=== PATIENT | male | born 1990 | race Caucasian/White ===

== ENCOUNTER 2018-02-01 14:14 | Day surgery (SDC) | payer MEDICAID ==
[2018-02-01] MEDS ORDERED: Sodium Chloride 0.9% 10 ML Syringe FLUSH PRN ×2 (14:33→14:41)
[2018-02-01] MEDS ORDERED: Sodium Chloride 0.9% 1,000 ML IV STA (14:33)
[2018-02-01] MEDS ORDERED: Ondansetron 4 MG/2 ML SDV IVPUSH ONE (14:35)
[2018-02-01] MEDS ORDERED: HYDROmorphone 0.5 MG/0.5 ML SYRINGE IVPUSH ONE ×2 (14:35→16:21)
[2018-02-01] MEDS ORDERED: Diatrizoate Meglumine/Diatrizoate Sodium 37% 120 ML Bottle PO ONE (14:41)
[2018-02-01] MEDS ORDERED: Iopamidol 612 MG/ML 150 ML Bottle IVPUSH ONE (14:41)
[2018-02-01] MEDS ORDERED: Famotidine 20 MG/2 ML SDV IVPUSH ONE (14:48)
--- NOTE | 2018-02-01 14:51 | EDM.PDOC ---
ED HPI GENERAL MEDICAL PROBLEM - General Chief Complaint: Abdominal Pain Stated Complaint: ABDOMINAL PAIN Time Seen by Provider: 02/01/18 14:26 Source of Information: Reports: Patient History Limitations: Reports: No Limitations - History of Present Illness INITIAL COMMENTS - FREE TEXT/NARRATIVE: The patient presents with abdominal pain, nausea and vomiting. This started this morning. He has no diarrhea or dysuria. He still has his gallbladder and appendix. He has no fever, chills, cough, chest pain, or shortness of breath. He cannot keep anything down. Onset: Gradual Duration: Hour(s): Location: Reports: Abdomen Quality: Reports: Sharp Severity: Moderate Improves with: Reports: None Worsens with: Reports: None Associated Symptoms: Reports: Nausea/Vomiting. Denies: Chest Pain, Fever/Chills , Headaches, Shortness of Breath Treatments TAFFY PULLER: Reports: Other (see below) Other Treatments TAFFY PULLER: none Upper Abdomen Pain Score (Numeric/FACES): 9 - Related Data Allergies Allergy/AdvReac Type Severity Reaction Status Date / Time No Known Allergies Allergy Verified 02/01/18 14:25 Home Meds: Home Meds . [No Known Home Meds] 02/01/18 [History] Past Medical History - Past Health History Medical/Surgical History: Denies Medical/Surgical History Social & Family History - Tobacco Use Smoking Status *Q: Current Every Day Smoker Years of Tobacco use: 12 Packs/Tins Daily: 0.5 - Caffeine Use Caffeine Use: Reports: Soda - Recreational Drug Use Recreational Drug Use: No ED ROS GENERAL - Review of Systems Review Of Systems: See Below Constitutional: Reports: No Symptoms HEENT: Reports: No Symptoms Respiratory: Reports: No Symptoms Cardiovascular: Reports: No Symptoms Endocrine: Reports: No Symptoms GI/Abdominal: Reports: Abdominal Pain, Nausea, Vomiting. Denies: Diarrhea : Reports: No Symptoms Musculoskeletal: Reports: No Symptoms Skin: Reports: No Symptoms ED EXAM, GI/ABD - Physical Exam Exam: See Below Exam Limited By: No Limitations General Appearance: Alert, No Apparent Distress Ears: Normal External Exam Nose: Normal Inspection Head: Atraumatic, Normocephalic Neck: Normal Inspection Respiratory/Chest: No Respiratory Distress, Lungs Clear, Normal Breath Sounds Cardiovascular: Regular Rate, Rhythm, No Edema, No Murmur GI/Abdominal Exam: Soft, No Organomegaly, No Mass, Tender (Moderate tenderness to the upper abdomen with some mild pain to the RLQ) Back Exam: Normal Inspection Extremities: Normal Inspection Course - Vital Signs Last Recorded V/S: Last Vital Signs Temp 97.6 F 02/01/18 14:27 Pulse 73 02/01/18 14:27 Resp 20 02/01/18 14:27 BP 133/93 H 02/01/18 14:27 Pulse Ox 100 02/01/18 14:27 - Orders/Labs/Meds Orders: Active Orders 24 hr Category Date Time Status Peripheral IV Care [RC] . DIRECTED Care 02/01/18 14:34 Active Abdomen Pelvis w Cont [CT] Stat Exams 02/01/18 14:33 Taken UA W/MICROSCOPIC [URIN] Stat Lab 02/01/18 16:34 Ordered Sodium Chloride 0.9% [Saline Flush] Med 02/01/18 14:33 Active 10 ml FLUSH ASDIRECTED PRN Sodium Chloride 0.9% [Saline Flush] Med 02/01/18 14:41 Active 10 ml FLUSH ONETIME PRN cefOXitin [Mefoxin in Dextrose,Iso-Osm 2 GM/50 ML] 2 gm Med 02/01/18 17:13 Ordered Premix Bag 1 bag IV ONETIME Peripheral IV Insertion Adult [OM.PC] Stat Oth 02/01/18 14:33 Ordered Medication Orders Sodium Chloride (Saline Flush) 10 ml FLUSH ASDIRECTED PRN PRN Reason: Keep Vein Open Last Admin: 02/01/18 15:08 Dose: 10 ml Sodium Chloride (Saline Flush) 10 ml FLUSH ONETIME PRN PRN Reason: IV FLUSH Last Admin: 02/01/18 16:01 Dose: 10 ml Labs: Laboratory Tests 02/01/18 02/01/18 02/01/18 Range/Units 14:57 14:57 16:34 WBC 14.36 H (4.23-9.07) K/mm3 RBC 5.03 (4.63-6.08) M/mm3 Hgb 15.3 (13.7-17.5) gm/L Hct 45.3 (40.1-51.0) % MCV 90.1 (79.0-92.2) fl MCH 30.4 (25.7-32.2) pg MCHC 33.8 (32.2-35.5) g/dl RDW Std Deviation 42.5 (35.1-43.9) fL Plt Count 268 (163-337) K/mm3 MPV 9.7 (9.4-12.3) fl Neut % (Auto) 87.8 H (34.0-67.9) % Lymph % (Auto) 7.4 L (21.8-53.1) % [place] % (Auto) 4.3 L (5.3-12.2) % Eos % (Auto) 0.1 L (0.8-7.0) Baso % (Auto) 0.1 (0.1-1.2) % Neut # (Auto) 12.61 H (1.78-5.38) K/mm3 Lymph # (Auto) 1.06 L (1.32-3.57) K/mm3 [place] # (Auto) 0.62 (0.30-0.82) K/mm3 Eos # (Auto) 0.02 L (0.04-0.54) K/mm3 Baso # (Auto) 0.01 (0.01-0.08) K/mm3 Manual Slide Review Normal smear Sodium 140 (136-145) mEq/L Potassium 3.9 (3.5-5.1) mEq/L Chloride 103 (98-107) mEq/L Carbon Dioxide 29 (21-32) mEq/L Anion Gap 11.9 (5-15) BUN 14 (7-18) mg/dL Creatinine 0.8 (0.7-1.3) mg/dL Est Cr Clr Drug Dosing 127.48 mL/min Estimated GFR (MDRD) > 60 (>60) mL/min BUN/Creatinine Ratio 17.5 (14-18) Glucose 125 H (74-106) mg/dL Calcium 9.6 (8.5-10.1) mg/dL Total Bilirubin 0.3 (0.2-1.0) mg/dL AST 15 (15-37) U/L ALT 25 (16-63) U/L Alkaline Phosphatase 84 (46-116) U/L Total Protein 8.6 H (6.4-8.2) g/dl Albumin 4.7 (3.4-5.0) g/dl Globulin 3.9 gm/dL Albumin/Globulin Ratio 1.2 (1-2) Lipase 95 (73-393) U/L Urine Color Yellow (Yellow) Urine Appearance Clear (Clear) Urine pH 7.5 (5.0-8.0) Ur Specific [place] 1.020 (1.005-1.030) Urine Protein Negative (Negative) Urine Glucose (UA) Negative (Negative) Urine Ketones 1+ H (Negative) Urine Occult Blood Negative (Negative) Urine Nitrite Negative (Negative) Urine Bilirubin Negative (Negative) Urine Urobilinogen 0.2 (0.2-1.0) Ur Leukocyte Esterase Negative (Negative) Urine RBC 0-5 (0-5) /hpf Urine WBC Not seen (0-5) /hpf Ur Epithelial Cells 0-5 (0-5) /hpf Urine Bacteria Not seen (FEW) /hpf Urine Mucus Not seen (FEW) /hpf Meds: Medications Generic Name Dose Route Start Last Admin Trade Name Freq PRN Reason Stop Dose Admin Sodium Chloride 10 ml 02/01/18 14:33 02/01/18 15:08 Saline Flush FLUSH 10 ml ASDIRECTED PRN Administration Keep Vein Open Sodium Chloride 10 ml 02/01/18 14:41 02/01/18 16:01 Saline Flush FLUSH 10 ml ONETIME PRN Administration IV FLUSH Discontinued Medications Generic Name Dose Route Start Last Admin Trade Name Freq PRN Reason Stop Dose Admin Diatrizoate Meglum/Diatrizoate Sod 120 ml 02/01/18 14:41 02/01/18 16:00 Gastrografin 37% PO 02/01/18 14:42 90 ml ONETIME ONE Administration Famotidine 20 mg 02/01/18 14:48 02/01/18 15:07 Pepcid IVPUSH 02/01/18 14:49 20 mg ONETIME ONE Administration Hydromorphone HCl 0.5 mg 02/01/18 14:35 02/01/18 15:07 Dilaudid IVPUSH 02/01/18 14:36 0.5 mg ONETIME ONE Administration Hydromorphone HCl 0.5 mg 02/01/18 16:21 02/01/18 16:27 Dilaudid IVPUSH 02/01/18 16:22 0.5 mg ONETIME ONE Administration Sodium Chloride 1,000 mls @ 1,000 mls/hr 02/01/18 14:33 02/01/18 15:06 Normal Saline IV 02/01/18 15:32 1,000 mls/hr .BOLUS STA Administration Iopamidol 100 ml 02/01/18 16:01 02/01/18 16:02 Isovue-300 (61%) IVPUSH 02/01/18 16:02 100 ml ONETIME ONE Administration Metoclopramide HCl 10 mg 02/01/18 16:35 02/01/18 16:39 Reglan IVPUSH 02/01/18 16:36 10 mg ONETIME ONE Administration Ondansetron HCl 4 mg 02/01/18 14:35 02/01/18 15:07 Zofran IVPUSH 02/01/18 14:36 4 mg ONETIME ONE Administration - Re-Assessments/Exams Free Text/Narrative Re-Assessment/Exam: 02/01/18 14:51 I ordered an IV NS 1L bolus, dilaudid 0.5mg IV, zofran 4mg IV, labs, UA and a CT of his abdomen and pelvis. 02/01/18 17:17 His WBC was elevated at 14.36. His glucose is elevated at 125. His lipase is negative. His UA shows no UTI. [facility] radiologist called and the patient has acute appendicitis. I called Dr Kumar and he will come see the patient and take him to the OR. I have ordered cefoxitin 2grams IV. Departure - Departure Time of Disposition: 17:20 Disposition: DC/Tfer to [facility] Condition: Good Clinical Impression: Appendicitis Qualifiers: Appendicitis type: acute appendicitis Acute appendicitis type: with localized peritonitis Qualified Code(s): K35.3 - Acute appendicitis with localized peritonitis - Discharge Information Referrals: PCP,None [Primary Care Provider] - Forms: ED Department Discharge - My Orders Last 24 Hours: My Active Orders 02/01/18 14:33 Abdomen Pelvis w Cont [CT] Stat Sodium Chloride 0.9% [Saline Flush] 10 ml FLUSH ASDIRECTED PRN Peripheral IV Insertion Adult [OM.PC] Stat 02/01/18 14:34 Peripheral IV Care [RC] . DIRECTED 02/01/18 14:41 Sodium Chloride 0.9% [Saline Flush] 10 ml FLUSH ONETIME PRN 02/01/18 16:34 UA W/MICROSCOPIC [URIN] Stat 02/01/18 17:13 cefOXitin [Mefoxin in Dextrose,Iso-Osm 2 GM/50 ML] 2 gm Premix Bag 1 bag IV ONETIME - Assessment/Plan Last 24 Hours: My Active Orders 02/01/18 14:33 Abdomen Pelvis w Cont [CT] Stat Sodium Chloride 0.9% [Saline Flush] 10 ml FLUSH ASDIRECTED PRN Peripheral IV Insertion Adult [OM.PC] Stat 02/01/18 14:34 Peripheral IV Care [RC] . DIRECTED 02/01/18 14:41 Sodium Chloride 0.9% [Saline Flush] 10 ml FLUSH ONETIME PRN 02/01/18 16:34 UA W/MICROSCOPIC [URIN] Stat 02/01/18 17:13 cefOXitin [Mefoxin in Dextrose,Iso-Osm 2 GM/50 ML] 2 gm Premix Bag 1 bag IV ONETIME
[2018-02-01] MEDS ORDERED: Iopamidol 612 MG/ML 100 ML Bottle IVPUSH ONE (16:01)
[2018-02-01] MEDS ORDERED: Metoclopramide 10 MG/2 ML SDV IVPUSH ONE (16:35)
[2018-02-01] MEDS ORDERED: cefOXitin 2 GM in Premix Bag 1 BAG IV ONE (17:13)
--- NOTE | 2018-02-01 18:38 | PCM.PREANE ---
Preanesthetic Assessment - Anesthesia/Transfusion/Family Hx Anesthesia History: No Prior Anesthesia Family History of Anesthesia Reaction: No Transfusion History: No Prior Transfusion(s) Intubation History: Unknown - Review of Systems General: No Symptoms, Weakness, Malaise Pulmonary: No Symptoms (current smoker: 0.5 packs/day times 12 years.) Cardiovascular: No Symptoms Gastrointestinal: No Symptoms, Abdominal Pain, Nausea, Vomiting Neurological: No Symptoms Other: Reports: None - Physical Assessment NPO Status Date: 02/01/18 NPO Status Time: 16:00 Pulse: 73 O2 Sat by Pulse Oximetry: 98 Respiratory Rate: 16 Blood Pressure: 123/75 Temperature: 36.4 C Vital Signs: Last Vital Signs Temp 36.4 C 02/01/18 14:27 Pulse 97 02/01/18 17:45 Resp 16 02/01/18 17:45 BP 123/75 02/01/18 17:45 Pulse Ox 98 02/01/18 17:45 Height: 1.7 m Weight: 64.41 kg ASA Class: 2E Mental Status: Alert & Oriented x3 Airway Class: Mallampati = 2 Dentition: Reports: Normal Dentition, Broken Tooth/Teeth, Missing Tooth/Teeth, Caries Thyro-Mental Finger Breadths: 3 Mouth Opening Finger Breadths: 3 ROM/Head Extension: Full Lungs: Clear to Auscultation, Normal Respiratory Effort Cardiovascular: Regular Rate, Regular Rhythm - Lab Values: Laboratory Last Values WBC 14.36 K/mm3 (4.23-9.07) H 02/01/18 14:57 RBC 5.03 M/mm3 (4.63-6.08) 02/01/18 14:57 Hgb 15.3 gm/L (13.7-17.5) 02/01/18 14:57 Hct 45.3 % (40.1-51.0) 02/01/18 14:57 MCV 90.1 fl (79.0-92.2) 02/01/18 14:57 MCH 30.4 pg (25.7-32.2) 02/01/18 14:57 MCHC 33.8 g/dl (32.2-35.5) 02/01/18 14:57 RDW Std Deviation 42.5 fL (35.1-43.9) 02/01/18 14:57 Plt Count 268 K/mm3 (163-337) 02/01/18 14:57 MPV 9.7 fl (9.4-12.3) 02/01/18 14:57 Neut % (Auto) 87.8 % (34.0-67.9) H 02/01/18 14:57 Lymph % (Auto) 7.4 % (21.8-53.1) L 02/01/18 14:57 [place] % (Auto) 4.3 % (5.3-12.2) L 02/01/18 14:57 Eos % (Auto) 0.1 (0.8-7.0) L 02/01/18 14:57 Baso % (Auto) 0.1 % (0.1-1.2) 02/01/18 14:57 Neut # (Auto) 12.61 K/mm3 (1.78-5.38) H 02/01/18 14:57 Lymph # (Auto) 1.06 K/mm3 (1.32-3.57) L 02/01/18 14:57 [place] # (Auto) 0.62 K/mm3 (0.30-0.82) 02/01/18 14:57 Eos # (Auto) 0.02 K/mm3 (0.04-0.54) L 02/01/18 14:57 Baso # (Auto) 0.01 K/mm3 (0.01-0.08) 02/01/18 14:57 Manual Slide Review Normal smear 02/01/18 14:57 Sodium 140 mEq/L (136-145) 02/01/18 14:57 Potassium 3.9 mEq/L (3.5-5.1) 02/01/18 14:57 Chloride 103 mEq/L (98-107) 02/01/18 14:57 Carbon Dioxide 29 mEq/L (21-32) 02/01/18 14:57 Anion Gap 11.9 (5-15) 02/01/18 14:57 BUN 14 mg/dL (7-18) 02/01/18 14:57 Creatinine 0.8 mg/dL (0.7-1.3) 02/01/18 14:57 Est Cr Clr Drug Dosing 127.48 mL/min 02/01/18 14:57 Estimated GFR (MDRD) > 60 mL/min (>60) 02/01/18 14:57 BUN/Creatinine Ratio 17.5 (14-18) 02/01/18 14:57 Glucose 125 mg/dL (74-106) H 02/01/18 14:57 Calcium 9.6 mg/dL (8.5-10.1) 02/01/18 14:57 Total Bilirubin 0.3 mg/dL (0.2-1.0) 02/01/18 14:57 AST 15 U/L (15-37) 02/01/18 14:57 ALT 25 U/L (16-63) 02/01/18 14:57 Alkaline Phosphatase 84 U/L (46-116) 02/01/18 14:57 Total Protein 8.6 g/dl (6.4-8.2) H 02/01/18 14:57 Albumin 4.7 g/dl (3.4-5.0) 02/01/18 14:57 Globulin 3.9 gm/dL 02/01/18 14:57 Albumin/Globulin Ratio 1.2 (1-2) 02/01/18 14:57 Lipase 95 U/L (73-393) 02/01/18 14:57 Urine Color Yellow (Yellow) 02/01/18 16:34 Urine Appearance Clear (Clear) 02/01/18 16:34 Urine pH 7.5 (5.0-8.0) 02/01/18 16:34 Ur Specific [place] 1.020 (1.005-1.030) 02/01/18 16:34 Urine Protein Negative (Negative) 02/01/18 16:34 Urine Glucose (UA) Negative (Negative) 02/01/18 16:34 Urine Ketones 1+ (Negative) H 02/01/18 16:34 Urine Occult Blood Negative (Negative) 02/01/18 16:34 Urine Nitrite Negative (Negative) 02/01/18 16:34 Urine Bilirubin Negative (Negative) 02/01/18 16:34 Urine Urobilinogen 0.2 (0.2-1.0) 02/01/18 16:34 Ur Leukocyte Esterase Negative (Negative) 02/01/18 16:34 Urine RBC 0-5 /hpf (0-5) 02/01/18 16:34 Urine WBC Not seen /hpf (0-5) 02/01/18 16:34 Ur Epithelial Cells 0-5 /hpf (0-5) 02/01/18 16:34 Urine Bacteria Not seen /hpf (FEW) 02/01/18 16:34 Urine Mucus Not seen /hpf (FEW) 02/01/18 16:34 Above labs reviewed and noted and within acceptable ranges to proceed with scheduled procedure. - Allergies Allergies/Adverse Reactions: Allergies Allergy/AdvReac Type Severity Reaction Status Date / Time No Known Allergies Allergy Verified 02/01/18 14:25 - Anesthesia Plan Pre-Op Medication Ordered: None - Acknowledgements Anesthesia Type Planned: General Anesthesia Pt an Appropriate Candidate for the Planned Anesthesia: Yes Alternatives and Risks of Anesthesia Discussed w Pt/Guardian: Yes Pt/Guardian Understands and Agrees with Anesthesia Plan: Yes PreAnesthesia Questionnaire - Past Health History Medical/Surgical History: Denies Medical/Surgical History - SUBSTANCE USE Smoking Status *Q: Current Every Day Smoker Tobacco Use Within Last Twelve Months: Cigarettes Recreational Drug Use History: No - HOME MEDS Home Medications: Home Meds . [No Known Home Meds] 02/01/18 [History] - CURRENT (IN HOUSE) MEDS Current Meds: Current Medications Sodium Chloride (Saline Flush) 10 ml FLUSH ASDIRECTED PRN PRN Reason: Keep Vein Open Last Admin: 02/01/18 15:08 Dose: 10 ml Sodium Chloride (Saline Flush) 10 ml FLUSH ONETIME PRN PRN Reason: IV FLUSH Last Admin: 02/01/18 16:01 Dose: 10 ml Discontinued Medications Diatrizoate Meglum/Diatrizoate Sod (Gastrografin 37%) 120 ml PO ONETIME ONE Stop: 02/01/18 14:42 Last Admin: 02/01/18 16:00 Dose: 90 ml Famotidine (Pepcid) 20 mg IVPUSH ONETIME ONE Stop: 02/01/18 14:49 Last Admin: 02/01/18 15:07 Dose: 20 mg Hydromorphone HCl (Dilaudid) 0.5 mg IVPUSH ONETIME ONE Stop: 02/01/18 14:36 Last Admin: 02/01/18 15:07 Dose: 0.5 mg Hydromorphone HCl (Dilaudid) 0.5 mg IVPUSH ONETIME ONE Stop: 02/01/18 16:22 Last Admin: 02/01/18 16:27 Dose: 0.5 mg Sodium Chloride (Normal Saline) 1,000 mls @ 1,000 mls/hr IV .BOLUS STA Stop: 02/01/18 15:32 Last Admin: 02/01/18 15:06 Dose: 1,000 mls/hr Cefoxitin Sodium 2 gm/ Premix 50 mls @ 100 mls/hr IV ONETIME ONE Stop: 02/01/18 17:42 Last Admin: 02/01/18 17:35 Dose: 100 mls/hr Iopamidol (Isovue-300 (61%)) 100 ml IVPUSH ONETIME ONE Stop: 02/01/18 16:02 Last Admin: 02/01/18 16:02 Dose: 100 ml Metoclopramide HCl (Reglan) 10 mg IVPUSH ONETIME ONE Stop: 02/01/18 16:36 Last Admin: 02/01/18 16:39 Dose: 10 mg Ondansetron HCl (Zofran) 4 mg IVPUSH ONETIME ONE Stop: 02/01/18 14:36 Last Admin: 02/01/18 15:07 Dose: 4 mg
[2018-02-01] MEDS ORDERED: Lactated Ringers 1,000 ML IV SCH (18:45)
[2018-02-01] MEDS ORDERED: Lidocaine 1% 6 ML ONE (18:54)
[2018-02-01] MEDS ORDERED: Midazolam 1 MG/ML 2 ML SDV ONE (18:54)
[2018-02-01] MEDS ORDERED: Succinylcholine/Normal Saline 100 MG/5 ML Syringe ONE (18:54)
[2018-02-01] MEDS ORDERED: Ondansetron 4 MG/2 ML SDV ONE (18:54)
[2018-02-01] MEDS ORDERED: Propofol 200 MG/20 ML SDV ONE (18:54)
[2018-02-01] MEDS ORDERED: Rocuronium 50 MG/5 ML Vial ONE (18:54)
[2018-02-01] MEDS ORDERED: Ketorolac 30 MG/ML SDV ONE (18:54)
[2018-02-01] MEDS ORDERED: Lactated Ringers 1,000 ML ONE (18:54)
[2018-02-01] MEDS ORDERED: Dexamethasone 4 MG/ML 5 ML MDV ONE (18:54)
[2018-02-01] MEDS ORDERED: fentaNYL 250 MCG/5 ML SDV ONE (18:55)
--- NOTE | 2018-02-01 19:07 | HP ---
DATE OF ADMISSION: 02/01/2018 HISTORY OF PRESENT ILLNESS: The patient is a 27-year-old, who came into the emergency room with pain in the right lower quadrant that started this morning associated with loss of appetite and some nausea. CT scan was done and was interpreted as acute appendicitis. The patient has not had this pain before. PAST MEDICAL HISTORY: Good health. ALLERGIES: None known. SOCIAL HISTORY: Does smoke. No alcohol. REVIEW OF SYSTEMS: No chest pain, shortness of breath, cough, hoarseness, wheezing, fainting, weakness, numbness, or convulsions. FAMILY HISTORY: Negative. PHYSICAL EXAMINATION: GENERAL: Reveals alert and cooperative male. VITAL SIGNS: Show blood pressure 120/70, pulse in the 90s, and respirations normal. EYES: Sclerae white. Extraocular muscle motion normal. ORAL CAVITY: Healthy mucous membrane with mouth and tongue. NECK: Supple. No nodes. No thyromegaly. Trachea midline. LUNGS: Clear. No rales, rhonchi, fremitus, or dullness. HEART: Heart tones regular rate. No S3, S4, or jugular venous distention. ABDOMEN: Shows tenderness in McBurney's point with mild guarding. EXTREMITIES: No masses were noted in upper or lower extremities. No angulation deformities. NEUROLOGIC: Normal. No sensorineural deficit. Cranial nerves III through XII intact. SKIN: Warm and dry. PSYCHIATRIC: Normal. ASSESSMENT: Acute appendicitis. PLAN: Emergency appendectomy done laparoscopically. Discussed this with the patient and the risks and complications. He understands and consents. We will proceed. MMODAL /[id number]
[2018-02-01] MEDS: Bupivacaine 0.5% 30 ML SDV ONE ×2 (19:51→20:28)
[2018-02-01] MEDS ORDERED: fentaNYL 100 MCG/2 ML SDV IVPUSH PRN (19:54)
[2018-02-01] MEDS ORDERED: diphenhydrAMINE 50 MG/ML SDV IVPUSH PRN (19:54)
[2018-02-01] MEDS ORDERED: HYDROmorphone 0.5 MG/0.5 ML Syringe IVPUSH PRN (19:55)
[2018-02-01] MEDS ORDERED: Phenylephrine 1 MG in Sodium Chloride 0.9% 10 ML IV SCH (20:00)
[2018-02-01] MEDS ORDERED: Neostigmine Methylsulfate 1 MG/ML 5 ML Syringe ONE (20:02)
--- NOTE | 2018-02-01 20:37 | PCM.OPNOTE ---
- General Post-Op/Procedure Note Date of Surgery/Procedure: 02/01/18 Operative Procedure(s): lap appy Pre Op Diagnosis: acute appendicitis Post-Op Diagnosis: Same Anesthesia Technique: General ET Tube Primary Surgeon: Tristen Kumar EBL in mLs: 1 Complications: None Condition: Good
--- NOTE | 2018-02-01 20:48 | PCM.POSTAN ---
POST ANESTHESIA ASSESSMENT - MENTAL STATUS Mental Status: Alert - VITAL SIGNS Pulse Rate: 68 SaO2: 93 (2 LPM nasal cannula) Resp Rate: 18 Blood Pressure: 109/75 Temperature: 37.1 C - RESPIRATORY Respiratory Status: Respiratory Rate WNL, Airway Patent, O2 Saturation Stable, Supplemental Oxygen - CARDIOVASCULAR CV Status: Pulse Rate WNL, Blood Pressure Stable - GASTROINTESTINAL GI Status: No Symptoms - POST OP HYDRATION Hydration Status: Adequate & Stable
--- NOTE | 2018-02-02 16:38 | CT ---
CT abdomen and pelvis Technique: Multiple axial sections through the abdomen and pelvis were obtained. Intravenous contrast was utilized. Small amount of oral contrast was given. Comparison: No previous abdominal imaging is available. Findings: Visualized lung bases show nothing acute. Liver shows no focal parenchymal abnormality. Gallbladder contains no calcified gallstones. Spleen appears within normal limits. Adrenal glands show no nodule. Low density lesion is identified within the right kidney measuring 1.3 cm in size most likely representing a cyst. Kidneys otherwise appear unremarkable. Pancreas is within normal limits. Aorta shows no aneurysmal dilatation. No retroperitoneal adenopathy is seen. No pelvic mass or adenopathy is seen. No free fluid is seen. Mildly dilated appendix is seen containing several appendicoliths. Minimal inflammatory change is seen around the appendix. Bone window settings were reviewed which appear within normal limits for the patient's age. Impression: 1. Dilated appendix with minimal surrounding inflammatory change. Several appendicoliths are present. Findings compatible with early appendicitis. 2. Incidental renal cyst. 3. Other portions of the CT exam of the abdomen and pelvis are within normal limits. Diagnostic code #5 I agree with preliminary report from [facility], finalized at 02/01/18, 6:06 PM Central Time
--- NOTE | 2018-02-05 07:09 | OR ---
DATE OF OPERATION: 02/01/2018 SURGEON: Tristen Kumar MD PREOPERATIVE DIAGNOSIS: Acute appendicitis. POSTOPERATIVE DIAGNOSIS: Acute appendicitis. OPERATION PERFORMED: Laparoscopic appendectomy. FINDINGS: Serous appendicitis, minimal reaction in the peritoneum. ANESTHESIA: General anesthetic. ESTIMATED BLOOD LOSS: 1 mL. DESCRIPTION OF PROCEDURE: The patient was taken to the operating room, placed in a supine position, given a general anesthetic and intubated. Antibiotics were given. SCDs were placed and the abdomen was clipped and prepped with chlorhexidine and alcohol prepped and draped off in a sterile fashion. Incision was made just below the umbilicus, carried down by sharp dissection to the fascia which was incised, abdominal cavity entered, Sav trocar placed, secured with stay sutures to the fascia, and the pneumoperitoneum was then established. A 5-mm 30-degree camera was then inserted showing the acute appendicitis, it was mobile. A 5-mm trocar placed in right upper quadrant and 1 in the right lower quadrant and instruments were placed through these ports to mobilize the appendix. A window was placed in the mesoappendix and the Endo-ligator was then inserted into the abdominal cavity, placed through the window and the mesoappendix was from the appendix. Another firing of the Endo-ligator the appendix from the cecum. It was then placed in an endobag, removed from abdominal cavity, pneumoperitoneum, and sent to pathology. Pneumoperitoneum was then re- established and the area was irrigated, minimal bleeding noted, about 1 mL. This completed the intraabdominal portion of the procedure. The pneumoperitoneum ports were removed. The fascia was closed with 0 Vicryl suture in a transverse fashion and the skin of each port closed with subdermal 4-0 Monocryl. Steri- Strips and sterile dressing placed. An injection in each port was done with Marcaine. The patient tolerated the procedure and sent to recovery room in a stable condition. SIRISHA /[id number]
== END 2018-02-01 22:15 | disposition home or self-care (01) ==
LOC: JD.ED 14:14 → JD.SDS 17:52
PROVIDERS: ATTEND Surgery
DX: K35.3 Acute appendicitis with localized peritonitis (principal)
CPT/HCPCS: 36415; 44970; 74177; 80053; 81001; 83690; 85025; 96361; 96365; 96375; 96376; 99285; J0330; J0694; J1100; J1170; J1885; J2001; J2250; J2405; J2710; J2765; J3010; J7040; J7050; J7120; Q9963; Q9967; 00840; 99284; J2704